=== PATIENT | female | born 1995 | race Caucasian/White ===

== ENCOUNTER 2016-10-07 03:00 | Outpatient (CLI) | payer OTHER ==
[2016-10-13] MEDS ORDERED: COLACE-DPS100 MG PO (10:43)
[2016-10-13] MEDS ORDERED: IRON325 M1 PO (10:43)
[2016-10-13] MEDS ORDERED: PERCOCET 5 DPS1 TAB PO (10:44)
[2016-10-13] MEDS ORDERED: MOTRIN-DPS800 MG PO (10:44)
[2016-10-13] MEDS ORDERED: NIPPLECREAM TP (10:45)
[2016-10-13] MEDS ORDERED: LAN-O-SOOTHE7 GM TP (10:45)
[2016-10-13] MEDS ORDERED: PRENATAL VIT1 TAB PO (10:45)
[2016-10-13] MEDS ORDERED: MYLICON DPS80 MG PO (10:46)
== END 2016-10-07 05:00 | disposition home or self-care (01) ==
LOC: 2LDRP 03:00 → BC 03:00
DX: O47.1 False labor at or after 37 completed weeks of gestation (principal); Z3A.38 38 weeks gestation of pregnancy

== ENCOUNTER 2016-10-09 04:54 | Inpatient (IN) | payer OTHER ==
[~2016-10-09] VITALS: Ht 160 cm; Wt 69.4 kg
--- NOTE | ~2016-10-09 | HP ---
ADMIT: 10/09/2016 RM/LOC: 218 [facility] MR#: [id number] [address] SAMM CANCINO [address] [place] [address] Pre-OP History and Physical SEX: F AGE: 21 : 1995 DATE OF SERVICE: 10/09/2016 DATE OF PLANNED ADMISSION: 10/09/2016. CHIEF COMPLAINT: Need for section. HISTORY OF PRESENT ILLNESS: The patient is a 21-year-old, 3, para 1-0- 1-1 with an intrauterine at 39 and 1/7th weeks by a 6-week ultrasound, who presents to Labor and Delivery for repeat low transverse C- section at term. PAST MEDICAL HISTORY: 1. Group B strep carrier. 2. Anemia during . 3. History of genital herpes. 4. Back pain. 5. History of motion sickness. PAST SURGICAL HISTORY: 1. delivery in 2014. 2. Dilation and curettage in 2013. 3. Tonsillectomy at age 3. FAMILY HISTORY: Paternal grandfather with lung cancer, kidney disease, and diabetes. Father with hypertension, depression, and COPD. SOCIAL HISTORY: The patient denies alcohol, tobacco, or illicit drug use. She is single, but the father of the babyArnoldo is involved. 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 MEDICATIONS: 1. vitamins 1 tablet p.o. daily. 2. Ferrous gluconate 1 tablet p.o. t.i.d. 3. Zofran 4 mg q.6 hours p.r.n. 4. Valtrex 500 mg one tablet b.i.d. ALLERGIES: PENICILLIN WHICH CAUSES HIVES. REVIEW OF SYSTEMS: The patient denies vaginal bleeding, loss of fluid, uterine contractions, or decreased movement. OBSTETRICAL LABS: Blood type, O positive; antibody screen negative, RPR nonreactive, rubella immune, HIV negative, gonorrhea and chlamydia negative, quad screen negative. Hepatitis B surface antigen negative. Diabetic screen 87. Group B strep positive. PHYSICAL EXAMINATION: GENERAL: Well-developed, well-nourished, white female, alert and oriented x3, in no acute distress. VITAL SIGNS: Blood pressure 130/82, height 5 feet 3 inches, weight 151 ADMIT: 10/09/2016 RM/LOC: 218 [facility] MR#: [id number] [address] [facility] [address] [place] [address] Pre-OP History and Physical SEX: F AGE: 21 : 1995 pounds. HEENT: Head is normocephalic, atraumatic. Pupils are equal and round. Extraocular muscles are intact. NECK: Supple. Trachea midline. Thyroid not palpable. HEART: Regular rate and rhythm. LUNGS: Clear to auscultation bilaterally. ABDOMEN: Soft, nontender, and gravid. EXTREMITIES: No clubbing, cyanosis, or edema. NEUROLOGIC: Cranial nerves II through XII are grossly intact. A 2+ deep tendon reflex is noted. ASSESSMENT AND PLAN: This is a 21-year-old, 3, para 1-0-1-1 with an intrauterine at 39 and 1/7th weeks by a 6-week ultrasound, who presents to Labor and Delivery for repeat low transverse at term. The surgery has been scheduled for October 09, 2016. Veronika Cunningham MD/ gabriella JOB #: [id number] CC: Veronika Cunningham, Attending Physician Veronika Cunningham, Family Physician
[2016-10-13] MEDS ORDERED: COLACE-DPS100 MG PO (10:43)
[2016-10-13] MEDS ORDERED: IRON325 M1 PO (10:43)
[2016-10-13] MEDS ORDERED: MOTRIN-DPS800 MG PO (10:44)
[2016-10-13] MEDS ORDERED: PERCOCET 5 DPS1 TAB PO (10:44)
[2016-10-13] MEDS ORDERED: NIPPLECREAM TP (10:45)
[2016-10-13] MEDS ORDERED: LAN-O-SOOTHE7 GM TP (10:45)
[2016-10-13] MEDS ORDERED: PRENATAL VIT1 TAB PO (10:45)
[2016-10-13] MEDS ORDERED: MYLICON DPS80 MG PO (10:46)
--- NOTE | 2016-10-27 08:19 | OR ---
ADMIT: 10/09/2016 RM/LOC: 218 [facility] MR#: [id number] [address] SAMM CANCINO [address] [place] [address] Operative/Delivery Room Report SEX: F AGE: 21 : 1995 Corrected: 10/13/2016 0813 djs SURGERY DATE: 10/09/2016 SURGEON: Veronika Cunningham MD PREOPERATIVE DIAGNOSES: 1. Intrauterine at 39 and 1/7th weeks. 2. Previous delivery x1. POSTOPERATIVE DIAGNOSES: 1. Intrauterine at 39 and 1/7th weeks. 2. Previous delivery x1. PROCEDURE: Repeat low transverse . NURSING HOME ADMISSIONS DIRECTOR: Birgit Juan MD Resident ANESTHESIA: Spinal. ESTIMATED BLOOD LOSS: 700 mL. URINE OUTPUT: 150 mL clear urine. IV FLUIDS: 1300 mL crystalloid. CONDITION: Good. COMPLICATIONS: None. COUNTS: Correct x4 per operating room staff. FINDINGS: 1. A viable male infant, delivered in vertex presentation at 0743 hours. Weight 3280 g. scores 6, 7, and 8. 2. Normal maternal anatomy. DESCRIPTION OF PROCEDURE: The patient was taken to the operating room where spinal anesthesia was obtained without difficulty. She was then prepared and draped in the normal sterile fashion in the dorsal supine position with a leftward tilt. A Pfannenstiel skin incision was then made with a scalpel and carried through to the underlying layer of fascia with the Bovie. The fascia was then incised in the midline and the incision extended laterally using the Huizar scissors. The superior aspect of the fascial incision was then grasped with the Janet clamps, elevated, and the underlying rectus muscles dissected off with Bovie electrocautery. Attention was then turned to the inferior aspect of this incision which, in a similar fashion, was grasped with the Janet clamps, elevated, and the underlying rectus muscles dissected off with Bovie electrocautery. The rectus muscles were then in the midline and ADMIT: 10/09/2016 RM/LOC: 218 [facility] MR#: [id number] [address] SAMM CANCINO [address] [place] [address] Operative/Delivery Room Report SEX: F AGE: 21 : 1995 the peritoneum identified, tented up, and entered sharply with the Metzenbaum scissors. The incision was then extended superiorly and inferiorly with good visualization of the bladder. The bladder blade was then inserted and the vesicouterine peritoneum identified, tented up, entered sharply with Metzenbaum scissors. The incision was then extended laterally and the bladder flap created digitally. The bladder blade was then replaced and the lower uterine segment incised in a transverse fashion with the scalpel. The hysterotomy was then extended laterally manually. The was delivered atraumatically. The cord was doubly clamped and cut. The was handed off to the awaiting nurse. Cord blood was sent. The 's weight was 3280 g. scores were 6, 7, and 8. The placenta was then removed by fundal massage of the uterus. The uterus was then exteriorized and cleared of all clots and debris. The uterine incision was then repaired with #1 chromic in a running, locked fashion. The hysterotomy was then reinspected and found to be hemostatic. The uterus was then returned to the abdomen. The gutters were cleared of all clots. The fascia was then closed in a running fashion with 0 Vicryl. The subcutaneous tissue was closed in a running fashion with 2-0 Vicryl Rapide. The skin was closed in a subcuticular fashion with 4-0 Vicryl Rapide. The patient tolerated the procedure well. Sponge, lap, and needle counts were correct x4 per operating room staff. The patient and were taken to her room in stable condition. Veronika Cunningham MD/ gabriella JOB #: [id number] CC: Veronika Cunningham, Attending Physician Veronika Cunningham, Family Physician Corrected: 10/13/2016 0813 mary grace
--- NOTE | 2016-11-15 13:31 | DS ---
ADMIT: 10/09/2016 RM/LOC: 218 [facility] MR#: [id number] [address] SAMM CANCINO [address] [place] [address] General Discharge Summary SEX: F AGE: 21 : 1995 ADMISSION DATE: 10/09/2016 DISCHARGE DATE: 10/12/2016 ADMISSION DIAGNOSES: 1. A 21-year-old 3, para 1-0-1-1 with an intrauterine at 39 and 1/7th weeks by a six-week ultrasound. 2. Group B Strep carrier. 3. Anemia during . 4. History of genital herpes. 5. Back pain. 6. History of motion sickness. DISCHARGE DIAGNOSES: 1. Status post repeat low transverse . 2. Group B Strep carrier. 3. Anemia during . 4. History of genital herpes. 5. Back pain. 6. History of motion sickness. SERVICE: Obstetrics. PHYSICIAN: Veronika Cunningham MD CONSULTS: None. PROCEDURE: Repeat low transverse on 10/09/2016. HISTORY AND PHYSICAL EXAM: Briefly, the patient is a 21-year-old 3, para 1-0-1-1 with an intrauterine at 39 and 1/7th weeks by a 6-week ultrasound, who presents to Labor and Delivery for repeat low transverse C- section at term. Please see dictated history and physical exam for more information. HOSPITAL COURSE: On hospital day #1, the patient was admitted and underwent repeat low transverse without complication. Please see dictated operative report for more information. On postoperative day #1, the patient was doing well. Hemoglobin had decreased appropriately. The patient was not symptomatic from her anemia. She was tolerating a regular diet without concerns. On postoperative day #2, the patient continued to improve. Her pain was well controlled. Bleeding was normal. Vital signs were stable and she was ambulating without difficulty. By postoperative day #3, the patient was passing gas and felt to be stable for discharge to home. DISPOSITION: Discharged to home. DISCHARGE CONDITION: Good. DISCHARGE MEDICATIONS: ADMIT: 10/09/2016 RM/LOC: 218 [facility] MR#: [id number] [address] SAMM CANCINO [address] [place] [id number] General Discharge Summary SEX: F AGE: 21 : 1995 1. Colace 100 mg p.o. b.i.d. 2. Iron sulfate 325 mg p.o. b.i.d. 3. Mylicon 80 mg p.o. t.i.d. p.r.n. 4. vitamins 1 tablet p.o. daily. 5. Motrin 800 mg p.o. q.8 hours p.r.n. pain. 6. Percocet 5/325, one to two p.o. q.4 hours p.r.n. pain. 7. Block's nipple cream 1 application every hour as needed to nipples. 8. Lansinoh nipple cream 1 application to nipples as needed. DISCHARGE INSTRUCTIONS: The patient is to maintain pelvic rest for [address] while taking narcotics and no lifting greater than 15 pounds. The patient is to follow up with Dr. Cunningham at the [facility] in 6 weeks for a checkup with blood count. The patient is to call the clinic or return to the nearest emergency room should she experience pain not controlled by pain medications, heavy vaginal bleeding, intractable nausea or vomiting, temperature greater than 100.4 degrees Fahrenheit, or any incisional concerns. Veronika Cunningham MD/ gabriella JOB #: [id number] CC: Veronika Cunningham MD, Attending Physician Veronika Cunningham MD, Family Physician
== END 2016-10-12 11:35 | disposition home or self-care (01) | DRG 765 ==
LOC: BC 04:54 → 2LDRP 04:54 → BC 10-15 12:27
PROVIDERS: ADMIT Obstetrics & Gynecology
PROC: 10D00Z1 Extraction of Products of Conception, Low, Open Approach (ICD-10-PCS; principal; 2016-10-09)
DX: O34.211 Maternal care for low transverse scar from previous cesarean delivery (principal); O98.32 Other infections with a predominantly sexual mode of transmission complicating childbirth; A60.00 Herpesviral infection of urogenital system, unspecified; O99.824 Streptococcus B carrier state complicating childbirth; O99.02 Anemia complicating childbirth; D64.9 Anemia, unspecified; Z88.0 Allergy status to penicillin; Z3A.39 39 weeks gestation of pregnancy; Z37.0 Single live birth